=== PATIENT | male | born 1985 | race Caucasian/White ===

== ENCOUNTER 2023-11-26 08:44 | Emergency (ER) | payer BC ==
[~2023-11-26] VITALS: Ht 185.4 cm; Wt 117.0 kg
[2023-11-26] VITALS (10 sets, daily range): BP systolic 115–137; BP diastolic 70–100
[2023-11-26] MEDS ORDERED: METHOCARBAMOL 500 MG/TAB PO ONE (09:55)
[2023-11-26] MEDS ORDERED: ACETAMINOPHEN 500 MG TAB PO ONE (09:55)
[2023-11-26] MEDS ORDERED: KETOROLAC TROMETHAMINE 30 MG/ML SDV IM ONE (09:55)
[2023-11-26] MEDS ORDERED: PREDNISONE50 MG PO (11:16)
[2023-11-26] MEDS ORDERED: NAPROXEN500 MG PO (11:16)
[2023-11-26] MEDS ORDERED: FLEXERIL5 M1 PO (11:16)
[2023-11-26] MEDS ORDERED: predniSONE 20 MG/TAB PO ONE (11:20)
== END 2023-11-26 11:26 | disposition home or self-care (01) | DRG 552 ==
LOC: ED 08:44
DX: M54.50 Low back pain, unspecified (principal); F17.220 Nicotine dependence, chewing tobacco, uncomplicated